=== PATIENT | female | born 1995 ===

== ENCOUNTER 2018-11-02 12:28 | Emergency (ER) | payer SELFPAY ==
[2018-11-02 13:24] VITALS: BP 131/94
--- NOTE | 2018-11-02 14:15 | ED ---
GI/ HPI - HPI Summary HPI Summary: 23 year old female presents with her blood in her stool for the past 3 months. States is intermittent. She states some rectal pain with it. She states that she is not straining to have a bowel movement. She denies any family history of ulcerative colitis or Crohn's. She states that the blood is mostly throughout the stool. She states she is no blood when she wipes. She denies any fevers. No nausea vomiting. States only has rectal pain and no abdominal pain. She does not take ibuprofen daily. She denies any dark tarry stool. - History of Current Complaint Chief Complaint: UCGI Time Seen by Provider: 11/02/18 14:06 Stated Complaint: BLOOD IN STOOL Hx Last Menstrual Period: 10/23/18 Pain Intensity: 7 - Allergy/Home Medications Allergies/Adverse Reactions: Allergies Allergy/AdvReac Type Severity Reaction Status Date / Time No Known Allergies Allergy Verified 11/02/18 13:24 Home Medications: Home Medications NK [No Home Medications Reported] 11/02/18 [History Confirmed 11/02/18] PMH/Surg Hx/FS Hx/Imm Hx Endocrine/Hematology History: Denies: Hx Diabetes Cardiovascular History: Denies: Hx Hypertension Respiratory History: Reports: Hx Asthma Denies: Hx Chronic Obstructive Pulmonary Disease (COPD) GI History: Denies: Hx Ulcer - Surgical History Surgery Procedure, Year, and Place: denies Infectious Disease History: No Infectious Disease History: Denies: Hx Hepatitis, Hx Human Immunodeficiency Virus (HIV), Traveled Outside the [place] in Last 30 Days - Social History Alcohol Use: Rare Substance Use Type: Reports: None Smoking Status (MU): Never Smoked Tobacco Review of Systems Negative: Fever Negative: Chest Pain Negative: Shortness Of Breath Positive: Abdominal Pain, Other - blood in stool. Negative: Vomiting, Diarrhea , Nausea All Other Systems Reviewed And Are Negative: Yes Physical Exam Triage Information Reviewed: Yes Vital Signs On Initial Exam: Initial Vitals Temp Pulse Resp BP Pulse Ox 98.3 F 83 18 131/94 100 11/02/18 13:19 11/02/18 13:19 11/02/18 13:19 11/02/18 13:19 11/02/18 13:19 Vital Signs Reviewed: Yes Appearance: Positive: Well-Appearing Skin: Positive: Warm, Dry Head/Face: Positive: Normal Head/Face Inspection Eyes: Positive: Normal, Conjunctiva Clear ENT: Positive: Pharynx normal Respiratory/Lung Sounds: Positive: Clear to Auscultation, Breath Sounds Present Cardiovascular: Positive: Normal, RRR Abdomen Description: Positive: Nontender, Soft, Other: - no hemorrhoids noted, normal rectal tone, has specks of blood on rectal exam Bowel Sounds: Positive: Present Musculoskeletal: Positive: Normal Neurological: Positive: Normal Psychiatric: Positive: Normal Diagnostics - Vital Signs Vital Signs Temp Pulse Resp BP Pulse Ox 11/02/18 13:19 98.3 F 83 18 131/94 100 - Laboratory Lab Statement: Any lab studies that have been ordered have been reviewed, and results considered in the medical decision making process. GIGU Course/Dx - Course Course Of Treatment: 23 year old female presents with her blood in her stool for the past 3 months. States is intermittent. She states some rectal pain with it. She states that she is not straining to have a bowel movement. She denies any family history of ulcerative colitis or Crohn's. She states that the blood is mostly throughout the stool. She states she is no blood when she wipes. She denies any fevers. No nausea vomiting. States only has rectal pain and no abdominal pain. She does not take ibuprofen daily. She denies any dark tarry stool. On exam nontender abdomen. No hemorrhoids seen on rectal. Trace flex blood seen on rectal exam. as the patient is stable we will give referral to GI. Warned if any changes such as developing abdominal pain fever to go to the emergency department. told to follow up with primary about blood pressure as in pre-htn range. Patient understands agrees with plan. - Diagnoses Differential Diagnoses - Female: Colitis, Hemorrhoids, Irritable Bowel Syndrome Provider Diagnoses: GI bleed Discharge - Sign-Out/Discharge Documenting (check all that apply): Patient Departure All imaging exams completed and their final reports reviewed: No Studies - Discharge Plan Condition: Good Disposition: HOME Patient Education Materials: Gastrointestinal Bleeding (ED) Forms: *School Release Referrals: Michele Hill MD [Medical Doctor] - [facility] [Outside] Additional Instructions: follow up with GI est care with primary Go to the ED if develop fever, severe pain, weakness, or any new or worsening symptoms - Billing Disposition and Condition Condition: GOOD Disposition: Home - Attestation Statements Provider Attestation: Per institutional requirements, I have reviewed the chart, however, I was not consulted specifically or made aware of this patient by the midlevel provider. I did not personally evaluate, interact with , or disposition this patient.
== END 2018-11-02 14:34 | disposition home or self-care (01) ==
LOC: UCEAST 12:28
DX: K92.2 Gastrointestinal hemorrhage, unspecified (principal)
CPT/HCPCS: 99201; G0463

== ENCOUNTER 2019-03-16 10:22 | Emergency (ER) | payer OTHER ==
[2019-03-16 10:58] VITALS: BP 133/90
--- NOTE | 2019-03-16 11:18 | UC ---
Complaint Female HPI - HPI Summary HPI Summary: 23 yo female presents with intermittent bright red blood per rectum for the last 4 months. She had this issue back in October 2018 and was referred to GI. She tells me that she saw GI and they wanted to do a colonoscopy, but pt refused - therefore was advised to take stool softeners. She took stool softeners and her symptoms resolves. She says that she has a hx of anemia and is supposed to take an iron supplement, but does not because it makes her constipated. Since seeing GI she has noticed some bright red blood while having a bowel movement once a week or every other week with some pain around her anus. She has not followed up with GI. Denies abdominal pain, n/v, dysuria, constipation, diarrhea, dark tarry stools. - History Of Current Complaint Chief Complaint: UCGI Stated Complaint: BLOOD IN STOOL Time Seen by Provider: 03/16/19 11:16 Hx Obtained From: Patient Hx Last Menstrual Period: 03/05/19 Onset/Duration: Gradual Onset Timing: Intermittent Severity Initially: Moderate Severity Currently: Moderate Pain Intensity: 6 Pain Scale Used: 0-10 Numeric - Allergies/Home Medications Allergies/Adverse Reactions: Allergies Allergy/AdvReac Type Severity Reaction Status Date / Time No Known Allergies Allergy Verified 03/16/19 10:58 PMH/Surg Hx/FS Hx/Imm Hx - Additional Past Medical History Additional PMH: None - Surgical History Surgical History: None Surgery Procedure, Year, and Place: denies - Family History Known Family History: Positive: None - Social History Lives: With Family Alcohol Use: Occasionally Substance Use Type: None Smoking Status (MU): Never Smoked Tobacco Review of Systems All Other Systems Reviewed And Are Negative: Yes Constitutional: Positive: Negative Skin: Positive: Negative Respiratory: Positive: Negative Cardiovascular: Positive: Negative Gastrointestinal: Positive: Other - BRBPR Neurovascular: Positive: Negative Neurological: Positive: Negative Psychological: Positive: Negative Physical Exam - Summary Physical Exam Summary: GENERAL: NAD. WDWN. No pain distress. SKIN: No rashes, sores, lesions, or open wounds. NECK: Supple. Nontender. No lymphadenopathy. CHEST: CTAB. No r/r/w. No accessory muscle use. Breathing comfortably and in no distress. CV: RRR. Without m/r/g. Pulses intact. Cap refill <2seconds ABDOMEN: Soft. NTTP. No distention or guarding. No CVA tenderness. Bowel sounds present NEURO: Alert. PSYCH: Age appropriate behavior. Triage Information Reviewed: Yes Vital Signs: Initial Vital Signs Temp 98.2 F 03/16/19 10:51 Pulse 74 03/16/19 10:51 Resp 18 03/16/19 10:51 BP 133/90 03/16/19 10:51 Pulse Ox 100 03/16/19 10:51 Vital Signs Reviewed: Yes Complaint Female Dx - Course Course Of Treatment: Pt declined rectal exam today. I advised her that I cannot appropriately evaluate her symptoms without an exam - also offered to have a female provider or female nurse perform an exam, but pt continued to decline. Given that I am unable to examine the area, I will not start any treatment for pt at this time. Due to her hx of anemia - will draw for CBC today, but I advised her to restart her iron and stool softeners at this visit and to f/u with GI. She was in agreement with the plan. - Differential Dx/Diagnosis Provider Diagnosis: Bright red blood per rectum Discharge - Sign-Out/Discharge Documenting (check all that apply): Patient Departure All imaging exams completed and their final reports reviewed: No Studies - Discharge Plan Condition: Stable Disposition: HOME Patient Education Materials: Constipation (DC), High Fiber Diet (ED) Forms: *School Release Referrals: No Primary Care Phys,NOPCP [Primary Care Provider] - Michele Hill MD [Medical Doctor] - As Soon As Possible Additional Instructions: If you develop a fever, shortness of breath, chest pain, new or worsening symptoms - please call your PCP or go to the ED. 1) Please call your GI doctor at the number below to schedule a follow up appointment regarding the blood in your stool 2) I strongly recommend that you restart your iron supplements and take a stool softener - Billing Disposition and Condition Condition: STABLE Disposition: Home
[2019-03-16 16:46] LABS: ABS Basophils 0 10^3/ul (0-0.2); ABS Eosinophils 0 10^3/ul (0-0.6); ABS Lymphocytes 1.9 10^3/ul (1.0-4.8); ABS Monocytes 0.3 10^3/ul (0-0.8); ABS Neutrophils 4.5 10^3/ul (1.5-7.7); ABS Nucleated RBC 0 10^3/ul; Eosinophil % 0.3 %; Hematocrit 33 % (33-41); Hemoglobin 10.2 g/dL (12.0-16.0); Lymphocyte % 28.2 %; Mean Corpuscular HGB Conc 31 g/dL (31-36); Mean Corpuscular Hemoglobin 21 pg (27-31); Mean Corpuscular Volume 68 fL (80-97); Mean Platelet Volume 9.9 fL (7.4-10.4); Nucleated Red Blood Cells % 0.1; Platelet Count 255 10^3/uL (150-450); Red Blood Count 4.84 10^6 /uL (3.70-4.87); Red Cell Distribution Width 18 % (10.5-15); White Blood Count 6.7 10^3/uL (3.5-10.8)
[2019-03-16 16:47] LABS: Microcytosis 1+; Schistocytes 1+
--- NOTE | 2019-03-17 09:24 | UC ---
Course/Dx - Diagnoses Provider Diagnoses: Bright red blood per rectum Discharge - Sign-Out/Discharge Documenting (check all that apply): Post-Discharge Follow Up All imaging exams completed and their final reports reviewed: No Studies - Discharge Plan Condition: Stable Disposition: HOME Patient Education Materials: Constipation (DC), High Fiber Diet (ED) Forms: *School Release Referrals: Michele Hill MD [Medical Doctor] - As Soon As Possible No Primary Care Phys,NOPCP [Primary Care Provider] - Additional Instructions: Patient labs show that she is anemic and likely iron deficient anemia. Patient needs to see GI as initially recommended and to resume her Iron supplements If she continues to have rectal bleeding and/or she is lightheaded, dizzy or feels like she is going to pass out she should go to the ER - Billing Disposition and Condition Condition: STABLE Disposition: Home
== END 2019-03-16 11:36 | disposition home or self-care (01) ==
LOC: UCEAST 10:22
DX: K62.5 Hemorrhage of anus and rectum (principal)
CPT/HCPCS: 36415; 85025; 85060; 99211; G0463

== ENCOUNTER 2019-06-10 13:37 | Emergency (ER) | payer OTHER ==
[2019-06-10 14:50] LABS: ABS Lymphocytes 1.7 10^3/ul (1.0-4.8); ABS Monocytes 0.4 10^3/ul (0-0.8); ABS Neutrophils 4.7 10^3/ul (1.5-7.7); Eosinophil % 0.6 %; Hematocrit 31 % (35-47); Hemoglobin 9.6 g/dL (12.0-16.0); Lymphocyte % 25.2 %; Mean Corpuscular HGB Conc 31 g/dL (31-36); Mean Corpuscular Hemoglobin 20 pg (27-31); Mean Corpuscular Volume 66 fL (80-97); Mean Platelet Volume 9.5 fL (7.4-10.4); Platelet Count 231 10^3/uL (150-450); Red Blood Count 4.72 10^6 /uL (3.70-4.87); Red Cell Distribution Width 18 % (10-15); White Blood Count 6.8 10^3/uL (3.5-10.8)
[2019-06-10 14:56] LABS: ALT 9 U/L (7-52); AST 13 U/L (13-39); Albumin 4.2 g/dL (3.2-5.2); Albumin/Globulin Ratio 1.1 (1-3); Alkaline Phosphatase 89 U/L (34-104); Anion Gap 5 mmol/L (2-11); Blood Urea Nitrogen 11 mg/dL (6-24); CO2 Carbon Dioxide 27 mmol/L (22-32); Calcium 9.3 mg/dL (8.6-10.3); Chloride 104 mmol/L (101-111); EGFR African American 148.4 (>60); EGFR Non-African American 122.6 (>60); Globulin 3.7 g/dL (2-4); Glucose 94 mg/dL (70-100); Magnesium 1.8 mg/dL (1.9-2.7); Potassium 3.9 mmol/L (3.5-5.0); Sodium 136 mmol/L (135-145); Total Protein 7.9 g/dL (6.4-8.9)
[2019-06-10 15:01] LABS: HCG Pregnancy < 0.60 mIU/mL
[2019-06-10 16:02] LABS: TSH (Thyroid Stimulating Horm) 0.87 mcIU/mL (0.34-5.60)
[2019-06-10 16:22] LABS: Urine Appearance Clear; Urine Bilirubin Negative (Negative); Urine Blood Negative (Negative); Urine Color Yellow; Urine Glucose Negative (Negative); Urine Ketones Negative (Negative); Urine Nitrite Negative (Negative); Urine Protein Negative (Negative); Urine Specific Gravity 1.025 (1.010-1.030); Urine Urobilinogen Negative (Negative)
[2019-06-10] MEDS ORDERED: NS 0.9% 1000 ML** 1,000 ML IV ONE (17:56)
[2019-06-10] MEDS ORDERED: Magnesium Sulfate 1 GM IV* 1 GM/100 ML BAG IV ONE (18:53)
--- NOTE | 2019-06-10 20:35 | ED ---
Headache - HPI Summary HPI Summary: Patient complains of headache, lightheadedness, dizziness. No active symptoms here in the ED. Intermittent symptoms over the past 3 days. Headache described as frontal bilateral, resolved with BC powder. Denies fever, neck stiffness, vision change, focal deficits, cough, sore throat, CP, SOB, N/V/D, abdominal pain, change in urine, change in BM. Medical history is none. Patient states she does not hydrate very much, and has been out in the heat. - History Of Current Complaint Chief Complaint: EDDizziness Stated Complaint: HEADACHE DIZZY PER PT Time Seen by Provider: 06/10/19 17:54 Hx Obtained From: Patient Hx Last Menstrual Period: 03/05/19 Onset/Duration: Gradual Onset, Started days ago Initially Headache Was: Moderate Currently Pain Is: Current Pain Scale(0-10)= - 0 Timing: Intermittent, Lasting:, Hours Character: Throbbing Location of Headache: Frontal Aggravating Factor: Nothing Allevating Factors: Medication Associated Signs And Symptoms: Dizziness - Allergies/Home Medications Allergies/Adverse Reactions: Allergies Allergy/AdvReac Type Severity Reaction Status Date / Time No Known Allergies Allergy Verified 06/10/19 18:08 PMH/Surg Hx/FS Hx/Imm Hx Endocrine/Hematology History: Denies: Hx Diabetes, Hx Thyroid Disease Cardiovascular History: Denies: Hx Hypertension Respiratory History: Reports: Hx Asthma Denies: Hx Chronic Obstructive Pulmonary Disease (COPD) GI History: Denies: Hx Ulcer History: Denies: Hx Dialysis Sensory History: Denies: Hx Eye Prosthesis Opthamlomology History: Denies: Hx Legally Blind EENT History: Denies: Hx Deafness Neurological History: Denies: Hx Dementia Psychiatric History: Denies: Hx Autism - Surgical History Surgery Procedure, Year, and Place: denies - Immunization History Immunizations Up to Date: Yes Infectious Disease History: No Infectious Disease History: Denies: Hx Hepatitis, Hx Human Immunodeficiency Virus (HIV), Traveled Outside the [place] in Last 30 Days - Family History Known Family History: Positive: None - Social History Alcohol Use: Occasionally Substance Use Type: Reports: None Smoking Status (MU): Never Smoked Tobacco Review of Systems Constitutional: Negative Eyes: Negative ENT: Negative Cardiovascular: Negative Respiratory: Negative Gastrointestinal: Negative Genitourinary: Negative Musculoskeletal: Negative Skin: Negative Positive: Headache Psychological: Normal All Other Systems Reviewed And Are Negative: Yes Physical Exam - Summary Physical Exam Summary: Neuro exam normal. Triage Information Reviewed: Yes Vital Signs On Initial Exam: Initial Vitals Temp Pulse Resp BP Pulse Ox 97.8 F 80 18 150/90 98 06/10/19 13:47 06/10/19 13:47 06/10/19 13:47 06/10/19 13:47 06/10/19 13:47 Vital Signs Reviewed: Yes Appearance: Positive: Well-Appearing Skin: Positive: Warm Head/Face: Positive: Normal Head/Face Inspection Eyes: Positive: Normal Neck: Positive: Supple Respiratory/Lung Sounds: Positive: Clear to Auscultation Cardiovascular: Positive: Normal Abdomen Description: Positive: Nontender Musculoskeletal: Positive: Normal Neurological: Positive: Normal Psychiatric: Positive: Normal AVPU Assessment: Alert - [place] Coma Scale Best Eye Response: 4 - Spontaneous Best Motor Response: 6 - Obeys Commands Best Verbal Response: 5 - Oriented Coma Scale Total: 15 Diagnostics - Vital Signs Vital Signs Temp Pulse Resp BP Pulse Ox 06/10/19 19:07 80 119/68 99 06/10/19 19:00 88 98 06/10/19 18:38 76 113/79 100 06/10/19 18:09 102 98 06/10/19 18:07 91 136/84 98 06/10/19 15:58 97.0 F 81 18 131/88 99 06/10/19 13:47 97.8 F 80 18 150/90 98 - Laboratory Lab Results: Lab Results 06/10/19 06/10/19 06/10/19 Range/Units 14:28 14:28 14:28 WBC 6.8 (3.5-10.8) 10^3/uL RBC 4.72 (3.70-4.87) 10^6 /uL Hgb 9.6 L (12.0-16.0) g/dL Hct 31 L (35-47) % MCV 66 L (80-97) fL MCH 20 L (27-31) pg MCHC 31 (31-36) g/dL RDW 18 H (10-15) % Plt Count 231 (150-450) 10^3/uL MPV 9.5 (7.4-10.4) fL Neut % (Auto) 68.3 % Lymph % (Auto) 25.2 % Carbon % (Auto) 5.4 % Eos % (Auto) 0.6 % Baso % (Auto) 0.5 % Absolute Neuts (auto) 4.7 (1.5-7.7) 10^3/ul Absolute Lymphs (auto) 1.7 (1.0-4.8) 10^3/ul Absolute Monos (auto) 0.4 (0-0.8) 10^3/ul Absolute Eos (auto) 0.0 (0-0.6) 10^3/ul Absolute Basos (auto) 0.0 (0-0.2) 10^3/ul Absolute Nucleated RBC 0.0 10^3/ul Nucleated RBC % 0.0 Sodium 136 (135-145) mmol/L Potassium 3.9 (3.5-5.0) mmol/L Chloride 104 (101-111) mmol/L Carbon Dioxide 27 (22-32) mmol/L Anion Gap 5 (2-11) mmol/L BUN 11 (6-24) mg/dL Creatinine 0.61 (0.51-0.95) mg/dL Est GFR ( Amer) 148.4 (>60) Est GFR (Non-Af Amer) 122.6 (>60) BUN/Creatinine Ratio 18.0 (8-20) Glucose 94 (70-100) mg/dL Lactic Acid 0.9 (0.5-2.0) mmol/L Calcium 9.3 (8.6-10.3) mg/dL Magnesium 1.8 L (1.9-2.7) mg/dL Total Bilirubin 0.30 (0.2-1.0) mg/dL AST 13 (13-39) U/L ALT 9 (7-52) U/L Alkaline Phosphatase 89 (34-104) U/L Troponin I 0.00 (<0.04) ng/mL Total Protein 7.9 (6.4-8.9) g/dL Albumin 4.2 (3.2-5.2) g/dL Globulin 3.7 (2-4) g/dL Albumin/Globulin Ratio 1.1 (1-3) TSH 0.87 (0.34-5.60) mcIU/mL Beta HCG, Quant < 0.60 mIU/mL Urine Color Urine Appearance Urine pH (5-9) Ur Specific [place] (1.010-1.030) Urine Protein (Negative) Urine Ketones (Negative) Urine Blood (Negative) Urine Nitrate (Negative) Urine Bilirubin (Negative) Urine Urobilinogen (Negative) Ur Leukocyte Esterase (Negative) Urine Glucose (Negative) 06/10/19 Range/Units 16:11 WBC (3.5-10.8) 10^3/uL RBC (3.70-4.87) 10^6 /uL Hgb (12.0-16.0) g/dL Hct (35-47) % MCV (80-97) fL MCH (27-31) pg MCHC (31-36) g/dL RDW (10-15) % Plt Count (150-450) 10^3/uL MPV (7.4-10.4) fL Neut % (Auto) % Lymph % (Auto) % Carbon % (Auto) % Eos % (Auto) % Baso % (Auto) % Absolute Neuts (auto) (1.5-7.7) 10^3/ul Absolute Lymphs (auto) (1.0-4.8) 10^3/ul Absolute Monos (auto) (0-0.8) 10^3/ul Absolute Eos (auto) (0-0.6) 10^3/ul Absolute Basos (auto) (0-0.2) 10^3/ul Absolute Nucleated RBC 10^3/ul Nucleated RBC % Sodium (135-145) mmol/L Potassium (3.5-5.0) mmol/L Chloride (101-111) mmol/L Carbon Dioxide (22-32) mmol/L Anion Gap (2-11) mmol/L BUN (6-24) mg/dL Creatinine (0.51-0.95) mg/dL Est GFR ( Amer) (>60) Est GFR (Non-Af Amer) (>60) BUN/Creatinine Ratio (8-20) Glucose (70-100) mg/dL Lactic Acid (0.5-2.0) mmol/L Calcium (8.6-10.3) mg/dL Magnesium (1.9-2.7) mg/dL Total Bilirubin (0.2-1.0) mg/dL AST (13-39) U/L ALT (7-52) U/L Alkaline Phosphatase (34-104) U/L Troponin I (<0.04) ng/mL Total Protein (6.4-8.9) g/dL Albumin (3.2-5.2) g/dL Globulin (2-4) g/dL Albumin/Globulin Ratio (1-3) TSH (0.34-5.60) mcIU/mL Beta HCG, Quant mIU/mL Urine Color Yellow Urine Appearance Clear Urine pH 6.0 (5-9) Ur Specific [place] 1.025 (1.010-1.030) Urine Protein Negative (Negative) Urine Ketones Negative (Negative) Urine Blood Negative (Negative) Urine Nitrate Negative (Negative) Urine Bilirubin Negative (Negative) Urine Urobilinogen Negative (Negative) Ur Leukocyte Esterase Negative (Negative) Urine Glucose Negative (Negative) Result Diagrams: 06/10/19 14:28 06/10/19 14:28 Lab Statement: Any lab studies that have been ordered have been reviewed, and results considered in the medical decision making process. Headache Course/Dx - Course Course Of Treatment: Patient complains of headache, lightheadedness, dizziness. No active symptoms here in the ED. Intermittent symptoms over the past 3 days. Headache described as frontal bilateral, resolved with BC powder. Denies fever, neck stiffness, vision change, focal deficits, cough, sore throat , CP, SOB, N/V/D, abdominal pain, change in urine, change in BM. Medical history is none. Patient states she does not hydrate very much, and has been out in the heat. Vital signs within normal limits. Patient rated 9.6. Magnesium 1.8. Patient given 1 g magnesium IV. No prior history of anemia. Patient advised to follow-up with primary care. Labs otherwise unremarkable. EKG sinus rhythm. - Diagnoses Provider Diagnoses: Anemia, Dehydration Discharge - Sign-Out/Discharge Documenting (check all that apply): Patient Departure Patient Received Moderate/Deep Sedation with Procedure: No - Discharge Plan Condition: Stable Disposition: HOME Patient Education Materials: Dehydration (ED), Anemia (ED) Forms: *Gen. Provider Communication Referrals: No Primary Care Phys,NOPCP [Primary Care Provider] - [facility] [Outside] Additional Instructions: Drink plenty of fluids to maintain hydration. Follow-up with [facility] for further evaluation of anemia. Return to the ED for any new or worsening symptoms. - Billing Disposition and Condition Condition: STABLE Disposition: Home
[2019-06-10 21:13] VITALS: BP 131/80
== END 2019-06-10 21:12 | disposition home or self-care (01) ==
LOC: ED 13:37
DX: D64.9 Anemia, unspecified (principal); E86.0 Dehydration
CPT/HCPCS: 36415; 80053; 81003; 83605; 83735; 84443; 84484; 84702; 85025; 93005; 96361; 96365; 96366; 99283; J3475